=== PATIENT | female | born 1975 | race Hispanic/Latino ===

== ENCOUNTER 2020-08-28 10:56 | Emergency (ER) | payer BC, SELFPAY ==
--- NOTE | ~2020-08-28 | XR_ITS ---
EXAMINATION: XR chest 2V EXAM DATE: 08/28/2020 11:31 INDICATION: post covid difficulty breathing X 3 months non smoker . TECHNIQUE: Frontal and lateral projections of the chest obtained and reviewed. There is no prior rosendo dy for comparison. FINDINGS: There are cholecystectomy clips. The lungs are clear. There are no pleural effusions. Th e cardiomediastinal silhouette is within normal limits. There is no pneumothorax suspected. The bon es and soft tissues are unremarkable. IMPRESSION: No acute cardiopulmonary findings. Reviewed, dictated and finalized at location A. RE CUTTER
[2020-08-28 11:19] VITALS: BP 117/82; PULSE 72; RESP 18; TEMP 36.1; O2SAT 100
--- NOTE | 2020-08-28 11:40 | ED.SOB ---
HPI - SOB/Dyspnea General Chief Complaint: Shortness of Breath/Dyspnea Stated Complaint: Breathing Problem Source: patient and family Mode of arrival: ambulatory Limitations: no limitations History of Present Illness HPI Narrative: Patient is a 44-year-old female who presents with daughter. Patient speaks limited Kinyarwanda, patient's daughter is an adult and is assisting with translation. Patient reports having Covid in 04/18. Patient reports she continues to have residual symptoms since. She reports shortness of breath with exertion and fatigue. Patient daughter reports that patient is anxious because a friend with post Covid had a heart attack recently. Patient has appointment with PCP tomorrow as well. She denies chest pain or other complaints at this time. MD elicited complaint: shortness of breath Related Data Home Medications Medication Instructions Recorded Confirmed fluticasone propionate 50 mcg INTRANASAL DIRECTED 08/28/20 08/28/20 loratadine 10 mg PO DAILY 08/28/20 08/28/20 Allergies Allergy/AdvReac Type Severity Reaction Status Date / Time No Known Allergies Allergy Unverified 08/28/20 11:10 Review of Systems Review of Systems: Narrative: CONSTITUTIONAL: Denies fever, chills, or sweats. Reports fatigue EYES: Denies visual changes, redness, or discharge. ENT: Denies rhinorrhea, congestion, sore throat, or otalgia. CARDIOVASCULAR: Denies chest pain, palpitations, or edema. RESPIRATORY: Denies cough, reports intermittent dyspnea. GASTROINTESTINAL: Denies abdominal pain, nausea, vomiting, or diarrhea. GENITOURINARY: Denies dysuria or hematuria. SKIN: Denies rash or itching. MUSCULOSKELETAL: Denies back pain, joint pain, or myalgia. NEUROLOGIC: Denies headache, numbness, dizziness, or weakness. PSYCHIATRIC: Denies anxiety or depression. [facility] Past Medical History Medical History (Updated 08/28/20 @ 11:59 by CONCEPCIÓN Campos) COVID-19 Surgical History Surgical History (Updated 08/28/20 @ 11:55 by CONCEPCIÓN Campos) No significant past surgical history Family History Family History Sibling Family history of malignant neoplasm of breast in first degree relative Mother Diabetes mellitus Hypertension Father Family history of hypercholesterolemia Other Family history of malignant neoplasm Family history of malignant neoplasm of stomach Social History Social History (Updated 08/28/20 @ 11:55 by CONCEPCIÓN Campos) Smoking status: Never smoker Alcohol intake: current Alcohol use details: Occasional Substance use: never Living arrangements: with family Comments At the time of signature, I have reviewed and agree with nursing past medical, surgical, social, and family history unless otherwise noted. Please see nursing chart for further information. There is no relevant family history pertinent to the presenting complaint. Exam Narrative: Exam Narrative: GENERAL: Well-appearing, well-nourished, and in no acute distress. HEAD: Normocephalic, atraumatic. EYES: EOMI. No redness or drainage. Conjunctiva are normal. ENT: Mucous membranes pink and moist. CHEST: No respiratory distress. Clear to auscultation. HEART: Regular rate and rhythm. No murmur appreciated. Normal peripheral pulses. GI: Soft, nontender without rebound, or guarding. MUSCULOSKELETAL: No bony tenderness. EXTREMITIES: Normal range of motion. No edema. SKIN: Warm, dry, no rash. NEURO: No focal deficits. Alert and oriented x3. Gait steady. PSYCH: Normal affect. No signs of depression or anxiety. Course Vital Signs Vital signs: Vital Signs Temperature 36.1 C L 08/28/20 11:19 Pulse Rate 72 08/28/20 11:19 Respiratory Rate 18 08/28/20 11:19 Blood Pressure 117/82 08/28/20 11:19 Pulse Oximetry 100 08/28/20 11:19 Temperature 36.1 C L 08/28/20 11:19 Pulse Rate 72 08/28/20 11:19 Respiratory Rate 18
== END 2020-08-28 12:05 | disposition home or self-care (01) ==
PROVIDERS: Emergency Provider Nurse Practitioner
DX: R06.02 Shortness of breath (principal); R53.83 Other fatigue; B94.8 Sequelae of other specified infectious and parasitic diseases
CPT/HCPCS: 71046; 99213; G0463

== ENCOUNTER 2021-07-17 16:17 | Emergency (ER) | payer OTHER, SELFPAY ==
[2021-07-17 16:50] VITALS: BP 107/72; PULSE 68; RESP 18; TEMP 36.7; O2SAT 99
--- NOTE | 2021-07-17 17:02 | ED.EYEPROB ---
HPI - Eye Problem General Chief complaint: Eye Problems Stated complaint: Swollen Eye Time Seen by Provider: 07/17/21 17:02 Source: patient and RN notes reviewed Mode of arrival: ambulatory Limitations: no limitations and language barrier (Offered director of philanthropy, wanted to use niece to translate) History of Present Illness HPI Narrative: 45-year-old female [facility] and swelling to the right lower lid has been using Visine. States it started on Friday, 3 days ago chief complaint: eye pain Related Data Allergies Allergy/AdvReac Type Severity Reaction Status Date / Time No Known Allergies Allergy Unverified 08/28/20 11:10 Review of Systems Review of Systems: All systems reviewed & are unremarkable except as noted in HPI and below Constitutional: Constitutional: Reports no additional constitutional complaints, Denies chills and Denies fever(s) Eyes: Eyes: Reports as per HPI Comments: Right lower lid redness and swelling ENT: Reports system reviewed and no additional complaints, except as documented Cardiovascular: Cardiovascular: Reports no additional cardiovascular complaints Respiratory: Respiratory: Reports no additional respiratory complaints Gastrointestinal: Gastrointestinal: Reports no additional gastrointestinal complaints Musculoskeletal: Musculoskeletal: Reports no additional musculoskeletal complaints Integumentary/Breasts: Skin/Breast: Reports system reviewed and no additional complaints, except as docu Neurologic: Reports system reviewed and no additional complaints, except as documented Psychiatric: Psychiatric: Reports no additional psychiatric complaints Allergic/Immunologic: Allergic/Immunologic: Reports no additional allergic/immunologic complaints [facility] Past Medical History Medical History COVID-19 Surgical History Surgical History (Updated 07/17/21 @ 17:08 by Christina Moore) H/O: hysterectomy History of Hx of cholecystectomy No significant past surgical history Family History Family History Sibling Family history of malignant neoplasm of breast in first degree relative Mother Diabetes mellitus Hypertension Father Family history of hypercholesterolemia Other Family history of malignant neoplasm Family history of malignant neoplasm of stomach Social History Social History Smoking status: Never smoker Alcohol intake: current Alcohol use details: Occasional Substance use: never Comments At the time of my signature, I reviewed and agree with the nursing past medical, surgical, social, and family history. There is no relevant family history pertinent to the patient complaint. Exam Const: General: no acute distress Nutritional Appearance: well nourished Orientation/consciousness: patient oriented x3 Limitations: language barrier HENMT: Head: normal to inspection Eyes: General: appearance normal, both eyes and all related structures Alignment and Position: alignment normal Periorbital: periorbital findings normal Eyelids: eyelid abnormality right lower eyelid inflamed cyst, erythema, swelling and tenderness; no crusting or scaling of lid margins Conjunctivae: conjunctivae normal Cornea: corneas normal Pupils: Equal, round and reactive pupils present and Pupils normal by confrontation EOM: EOMs intact bilaterally Direct Ophthalmoscopy: normal light reflex Eyes/upper lids images: 1. Redness, stye, inflammation Neck: Neck: normal visual inspection Chest: Chest palpation & inspection: normal inspection of the chest Resp: Effort & Inspection: normal respiratory effort Cardio: Rate: regular rate Rhythm: regular rhythm Back/Spine/Pelvis: Back: no CVA tenderness Skin: General skin exam: normal color Rashes: no rashes Wounds: no wounds Neuro: General: cristi
== END 2021-07-17 17:17 | disposition home or self-care (01) ==
PROVIDERS: Emergency Provider Nurse Practitioner; PCP Physician Assistant
DX: H00.012 Hordeolum externum right lower eyelid (principal); Z86.16 Personal history of COVID-19
CPT/HCPCS: 99213; G0463

== ENCOUNTER 2021-08-17 13:59 | Emergency (ER) | payer OTHER, SELFPAY ==
[2021-08-17 14:13] VITALS: BP 109/72; PULSE 112; RESP 18; TEMP 37.7; O2SAT 97
--- NOTE | 2021-08-17 14:26 | ED.NAVMDI ---
HPI - Nausea/Vomiting/Diarrhea General Chief complaint: Nausea/Vomiting/Diarrhea Stated complaint: vomiting/weakness Time Seen by Provider: 08/17/21 14:26 Source: patient, RN notes reviewed and old records reviewed Mode of arrival: ambulatory Limitations: no limitations and language barrier (Offered data warehouse consultant via phone, patient and daughter declined) History of Present Illness HPI Narrative: 45-year-old [place]-speaking female presents to [facility] with her daughter. Scrap Baler phone offered, daughter declined. Daughter reports that mom woke up with abdominal pain, epigastric, periumbilical, right upper quadrant since 4 AM describes it as a sharp pain associated with nausea and vomiting. Denies any urinary symptoms. Denies any diarrhea. Has taken Pepto states it made the pain worse MD elicited complaint: nausea, vomiting and abdominal pain Related Data Allergies Allergy/AdvReac Type Severity Reaction Status Date / Time No Known Allergies Allergy Unverified 08/28/20 11:10 Review of Systems Review of Systems: All systems reviewed & are unremarkable except as noted in HPI and below Constitutional: Constitutional: Reports no additional constitutional complaints, Denies chills and Denies fever(s) Eyes: Eyes: Reports no additional eye complaints ENT: Reports system reviewed and no additional complaints, except as documented Cardiovascular: Cardiovascular: Reports no additional cardiovascular complaints, Denies chest pain and Denies dyspnea Respiratory: Respiratory: Reports no additional respiratory complaints, Denies cough, Denies dyspnea and Denies wheezing Gastrointestinal: Gastrointestinal: Reports as per HPI, Reports abdominal pain, Denies diarrhea, Reports nausea and Reports vomiting Musculoskeletal: Musculoskeletal: Reports no additional musculoskeletal complaints Integumentary/Breasts: Skin/Breast: Reports system reviewed and no additional complaints, except as docu Neurologic: Reports system reviewed and no additional complaints, except as documented Psychiatric: Psychiatric: Reports no additional psychiatric complaints Allergic/Immunologic: Allergic/Immunologic: Reports no additional allergic/immunologic complaints and Denies wheezing PMFSH Past Medical History Medical History COVID-19 Surgical History Surgical History H/O: hysterectomy History of Hx of cholecystectomy No significant past surgical history Family History Family History Sibling Family history of malignant neoplasm of breast in first degree relative Mother Diabetes mellitus Hypertension Father Family history of hypercholesterolemia Other Family history of malignant neoplasm Family history of malignant neoplasm of stomach Social History Social History Smoking status: Never smoker Alcohol intake: current Alcohol use details: Occasional Substance use: never Comments At the time of my signature, I reviewed and agree with the nursing past medical, surgical, social, and family history. There is no relevant family history pertinent to the patient complaint. Exam Const: General: healthy appearing, no acute distress and alert Nutritional Appearance: well nourished Orientation/consciousness: patient oriented x3 Limitations: no limitations HENMT: Head: normal to inspection Ears: external ears normal Eyes: Pupils: Equal, round and reactive pupils present Neck: Neck: normal visual inspection, no lymphadenopathy and no meningeal signs Chest: Chest palpation & inspection: normal inspection of the chest Resp: Effort & Inspection: normal respiratory effort and no use of accessory muscles Auscultation: clear to auscultation bilaterally, no crackles, no rales, no rhonchi and no wheezes Cardio: Rate: regular rate Rhythm
== END 2021-08-17 14:54 | disposition short-term general hospital (02) ==
LOC: EXPCOLL 14:02
PROVIDERS: Emergency Provider Nurse Practitioner
DX: R10.84 Generalized abdominal pain (principal); Z86.16 Personal history of COVID-19
CPT/HCPCS: 81003; 99212; G0463

== ENCOUNTER 2021-08-17 15:07 | Emergency (ER) | payer OTHER, SELFPAY ==
--- NOTE | ~2021-08-17 | CT_ITS ---
EXAMINATION: CT abdomen pelvis w con EXAM DATE: 08/17/2021 19:04 INDICATION: Abdomina pain, nausea. TECHNIQUE: Spiral CT of the abdomen and pelvis was performed following intravenous injection of 100 m L Omnipaque 350. Axial, coronal and sagittal images of the abdomen and pelvis were reviewed. The do se-length product (DLP) for this examination was 383.35 mGy-cm. The exposure was tailored according to patient size (auto mA exposure control), and iterative reconstruction (ASIR) was used as additiona l dose reduction technique. Comparison is made to prior examination from 08/08/2016. FINDINGS: There is hepatic steatosis without suspicious focal lesion identified. Spleen, adrenal glan ds, pancreas are unremarkable. There are cholecystectomy clips. Portal and splenic veins are patent . Kidneys enhance symmetrically. There is no hydronephrosis. The uterus is not identified and has likely been surgically resected. The bladder is unremarkable. There is no retroperitoneal or pelvi c lymphadenopathy. Small umbilical fat-containing hernia. There are no findings to suggest appendicitis. The stomach and small bowel are unremarkable. There is expected amount of colonic stool. No free intraperitoneal gas. The heart is normal in size. T here are no pericardial or pleural effusions. Dependent subsegmental atelectasis. There are no oste oblastic or osteolytic lesions identified. IMPRESSION: 1. No acute intra-abdominal findings. 2. Hepatic steatosis. Reviewed, dictated and finalized at location G. TAIN SERVER
--- NOTE | ~2021-08-17 | CT_ITS ---
EXAMINATION: CT brain wo con EXAM DATE: 08/17/2021 19:04 INDICATION: Headache. Nausea and vomiting. TECHNIQUE: Spiral CT of the head was performed without contrast. Axial, coronal and sagittal images were reviewed. The dose-length product (DLP) for this examination was 605.33 mGy-cm. The exposure w as tailored according to patient size, and iterative reconstruction (ASIR) was used as additional dos e reduction technique. There is no prior study for comparison. FINDINGS: There is no acute intraparenchymal hemorrhage. No evidence of intraparenchymal brain mass lesion. No evidence of acute infarction. There is no mass effect or midline shift. The ventricles are normal in size. There are no extra-axial collections. There are no acute calvarial fractures. T he orbits are unremarkable. Soft tissue is unremarkable. The visualized sinuses and mastoid air brian ls are well aerated. IMPRESSION: 1. No acute intracranial findings. Reviewed, dictated and finalized at location G. ECTOR [employer]
[2021-08-17 15:12] VITALS: BP 124/79; PULSE 109; RESP 18; TEMP 36.9; O2SAT 98
[2021-08-17 16:18] LABS: Basophils Percent Auto 0.3 % (0.2-1.2); Eosinophils Absolute Auto 0.1 K/mm3 (0-0.3); Eosinophils Percent Auto 0.9 % (0-4.4); Hematocrit 42.9 % (37.0-47.0); Hemoglobin 15.1 g/dL (12.0-15.0); Immature Granulocyte Absolute 0.05 K/mm3 (0.00-0.031); Immature Granulocyte Percent A 0.4 % (0-0.5); Lymphocytes Absolute Auto 0.62 K/mm3 (0.9-3.2); Mean Corpuscular HGB Conc 35.2 g/dl (32-36); Mean Corpuscular Hemoglobin 31.1 pg (26-34); Mean Corpuscular Volume 88.5 fl (80-100); Mean Platelet Volume 10.7 fl (7.4-10.4); Monocytes Absolute Auto 0.7 K/mm3 (0.1-0.6); Monocytes Percent Auto 5.7 % (2.6-8.5); Neutrophils Percent Auto 87.7 % (45.5-73.1); Platelet Count Result 269 k/mm3 (150-375); Red Blood Count 4.85 M/mm3 (4.2-5.4); Red Cell Distribution Width 12.1 % (11.5-14.5); White Blood Count 12.5 K/mm3 (4.5-10.0)
[2021-08-17 16:37] LABS: Alanine Aminotransferase 64 U/L (4-35); Alkaline Phosphatase 156 U/L (38-126); Anion Gap 13 mmol/L (8-16); Aspartate Amino Transferase 49 U/L (14-36); Bilirubin,Total 0.8 mg/dL (0.2-1.3); Blood Urea Nitrogen 17 mg/dL (7-17); Calcium 9.7 mg/dL (8.4-10.2); Carbon Dioxide 25 mmol/L (22-30); Chloride 100 mmol/L (98-107); Estimated Glomerular Filt Rate > 60; Glucose 130 mg/dL (65-110); Lipase 30 U/L (23-300); Potassium 3.7 mmol/L (3.4-5.0); Sodium 138 mmol/L (137-145)
[2021-08-17 16:37] LABS: Add Urine Microscopic? YES; Appearance Urine Clear (Clear); Bacteria Urine 2+ /hpf; Bilirubin Urine Negative (Negative); Blood Urine 1+ (Negative); Color Urine Amber (Yellow); Glucose Urine UA Negative (Negative); Ketones Urine 1+ mg/dL (Negative); Leukocyte Esterase Ur Negative LEU/UL (Negative); Mucus Urine Heavy /lpf; Nitrate Urine Negative (Negative); Protein Urine 2+ mg/dL (Negative); RBC Urine 21-50 /hpf (0-2); Squamous Epithelial Cell Urine Many /hpf (Few); WBC Urine 0-3 /hpf
[2021-08-17] MEDS: ONDANSETRON INJ 4 MG/2 ML VIAL IV PUSH (16:47)
[2021-08-17] MEDS: SODIUM CHLORIDE 0.9% IV 1,000 ML 999 ML IV CONT (17:04)
[2021-08-17 17:29] LABS: Specific Grav Ur 1.035 (1.001-1.035)
[2021-08-17] MEDS: diphenhydrAMINE HCl INJ 50 MG/ML VIAL 25 MG IV PUSH (17:32)
[2021-08-17] MEDS: KETOROLAC 15 MG/ML VIAL (*BKC) IV PUSH (17:33)
[2021-08-17 17:34] VITALS: BP 121/87; PULSE 108; RESP 14; O2SAT 92
--- NOTE | 2021-08-17 18:21 | ED.NAVMDI ---
HPI - Nausea/Vomiting/Diarrhea General Chief complaint: Nausea/Vomiting/Diarrhea Stated complaint: N/V, abd pain Time Seen by Provider: 08/17/21 16:08 Source: patient History of Present Illness HPI Narrative: 45-year-old female presents today with complaints of headache x1 month and nausea and vomiting with abdominal pain that started yesterday. Patient primary language is Omani. Daughter currently at the bedside. Denies any sick contacts. Patient was vaccinated against over the last year but did not get her boosters. Patient denies fever, chills, or body aches. Patient states she has tried Tylenol for headache with little relief. Related Data Allergies Allergy/AdvReac Type Severity Reaction Status Date / Time No Known Allergies Allergy Unverified 08/28/20 11:10 Review of Systems Constitutional: Constitutional: Reports as per HPI, Denies body ache(s), Denies chills, Reports fatigue, Reports headache(s), Denies increased appetite and Reports lethargy Eyes: Eyes: Reports no additional eye complaints ENT: Reports nasal congestion Cardiovascular: Cardiovascular: Reports no additional cardiovascular complaints Respiratory: Respiratory: Reports no additional respiratory complaints Gastrointestinal: Gastrointestinal: Reports as per HPI Genitourinary: Genitourinary: Reports no additional female genitourinary complaints Neurologic: Reports headache(s) (chronic headache at the base of the neck for 1 month) PMFSH Past Medical History Medical History COVID-19 Surgical History Surgical History H/O: hysterectomy History of Hx of cholecystectomy No significant past surgical history Family History Family History Sibling Family history of malignant neoplasm of breast in first degree relative Mother Diabetes mellitus Hypertension Father Family history of hypercholesterolemia Other Family history of malignant neoplasm Family history of malignant neoplasm of stomach Social History Social History Smoking status: Never smoker Alcohol intake: current Alcohol use details: Occasional Substance use: never Exam Narrative: GENERAL: ill-appearing, well-nourished, and in no acute distress. HEAD: Normocephalic, atraumatic. EYES: PERRLA and EOMI. ENT: Nares clear, no rhinorrhea or epistaxis. Mucous membranes moist. Oropharynx without tonsillar hypertrophy exudate or other lesions. Bilateral TMs pearly lyles nonbulging NECK: Supple. No adenopathy or masses. No carotid bruits or JVD CHEST: Clear to auscultation. No respiratory distress. No wheezes rales or rhonchi HEART: Regular rate and rhythm. No murmur heard. Normal peripheral pulses. ABDOMEN: Soft, nontender, nondistended, normal active bowel sounds. EXTREMITIES: Normal range of motion. No edema. SKIN: Warm, dry, no rash. NEURO: No focal deficits. Alert and oriented x3. PSYCH: Normal mood and affect. Const: General: ill appearing Course Reevaluation(s) Reevaluation #1: Patient fells better. Date: 08/17/21 Time: 19:23 Vital Signs Vital signs: Vital Signs Temperature 36.9 C 08/17/21 15:12 Pulse Rate 109 H 08/17/21 15:12 Respiratory Rate 18 08/17/21 15:12 Blood Pressure 124/79 08/17/21 15:12 Pulse Oximetry 98 08/17/21 15:12 Temperature 36.9 C 08/17/21 15:12 Pulse Rate 108 H 08/17/21 17:34 Respiratory Rate 14 08/17/21 17:34 Blood Pressure 121/87 08/17/21 17:34 Pulse Oximetry 92 08/17/21 17:34 MDM - Nausea/Vomiting/Diarrhea Differential Diagnosis Differential diagnosis: Likely gastroenteritis and other (SBO, viral illness) Medical Records Attestation: I reviewed the patient's medical records. Lab Data Attestation: I reviewed the patient's lab results. Result diagrams:
[2021-08-17 19:05] LABS: SARS-CoV-2 RNA PCR Negative
[2021-08-17 20:04] VITALS: BP 116/66; PULSE 95; RESP 16; O2SAT 94
== END 2021-08-17 20:01 | disposition home or self-care (01) ==
PROVIDERS: Emergency Medicine; Emergency Provider Nurse Practitioner Family; PCP Physician Assistant
DX: N39.0 Urinary tract infection, site not specified (principal); R11.2 Nausea with vomiting, unspecified; Z20.822 Contact with and (suspected) exposure to COVID-19; Z86.16 Personal history of COVID-19; K76.0 Fatty (change of) liver, not elsewhere classified
CPT/HCPCS: 36415; 70450; 74177; 80053; 81001; 81003; 81025; 83690; 85025; 96361; 96374; 96375; 99212; 99284; C9803; G0463; J1200; J1885; J2405; J7030; Q9967; U0003; U0005

== ENCOUNTER 2021-10-15 07:40 | Outpatient (CLI) | payer OTHER, SELFPAY ==
--- NOTE | ~2021-10-15 | MM_ITS ---
EXAMINATION: MM screening kait BI w manan HISTORY: Screening mammogram TECHNIQUE: Craniocaudal and mediolateral oblique 3-D tomosynthesis images were obtained and synthetic 2-D images were generated. CAD analysis was submitted and interpreted. COMPARISON: 09/09/2018, 09/04/2007 bilateral screening mammogram examinations BREAST PARENCHYMAL COMPOSITION: The breasts are heterogeneously dense, which may obscure small masses . FINDINGS: Occasional benign calcifications. There is no evidence of suspicious mass, calcification, o r architectural distortion to suggest malignancy in either breast. There has been no suspicious inter christopher change. IMPRESSION: 1. No mammographic evidence of malignancy. 2. Recommend routine screening mammography in one year. BI-RADS Category 2: Benign finding(s). Reviewed, dictated and finalized at location A.
== END 2021-10-15 07:41 | disposition home or self-care (01) ==
LOC: ANHIMG 07:42
PROVIDERS: PCP Physician Assistant; Visit Provider Physician Assistant
DX: Z12.31 Encounter for screening mammogram for malignant neoplasm of breast (principal)
CPT/HCPCS: 77063; 77067

== ENCOUNTER 2021-11-19 17:53 | Emergency (ER) | payer OTHER, SELFPAY ==
--- NOTE | ~2021-11-19 | CT_ITS ---
EXAMINATION: CT facial bones w con DATE: 11/19/2021 19:15 INDICATION: swelling, painful mass on R cheek . TECHNIQUE: Computed tomography (CT) of the facial bones and maxillofacial region was performed with 7 5 mL Omnipaque 300 intravenous contrast. Automated exposure control and iterative reconstruction tech nique were employed. The dose-length product was 258.98 mGy-cm. COMPARISON: None. FINDINGS: Soft Tissues: No significant superficial soft tissue swelling. Oval 1.9 x 0.7 x 1.1 cm ovoid, fluid density lesion superficial to the right masseter muscle just deep to the superficial layer of subcuta neous fat. No focal fluid or surrounding inflammatory change. Facial bones: No acute fracture. No lytic or blastic process. Eyes: The globes are intact. The soft tissue planes of the orbits are maintained. Paranasal Sinuses: Right inferior frontal retention cyst/polyp, otherwise the visualized aerated spa misbah are clear. Foreign Bodies: No radiopaque foreign bodies. Other Findings: None. IMPRESSION: Fluid density, possibly cystic 1.9 cm lesion superficial to the right masseter muscle, without signif icant inflammatory change. Otherwise normal CT face findings. Reviewed, dictated and finalized at location K. IMPRESSION: Fluid density, possibly cystic 1.9 cm lesion superficial to the right masseter muscle, without significant inflammatory change. Otherwise normal CT face findi ngs.
[2021-11-19 17:55] VITALS: BP 107/75; PULSE 64; RESP 16; TEMP 36.1; O2SAT 100
--- NOTE | 2021-11-19 18:10 | ED.SKABFB ---
HPI - Skin/Abscess/Foreign Bdy General Chief complaint: Skin/Abscess/Foreign Body Stated complaint: Unspecified Time Seen by Provider: 11/19/21 18:01 History of Present Illness HPI narrative: Patient is a 46-year-old female here for evaluation of a painful mass to her right cheek that she noted today. Patient states she noticed this when she was eating, and it made it difficult to continue her meal. Ever since she has had some difficulty with chewing due to the pain in her right cheek. She is taken 500 mg of Tylenol with moderate relief of her pain. Denies history of previous. Denies any drooling, trismus, difficulty swallowing, fevers, chills, dental pain, shortness of breath, throat swelling. Related Data Allergies Allergy/AdvReac Type Severity Reaction Status Date / Time No Known Allergies Allergy Unverified 11/19/21 17:59 Review of Systems Review of Systems: Gen.: Denies fevers or chills Eyes: Denies eye pain or visual change ENT: Reports mass to right cheek. Denies congestion Respiratory: Denies shortness of breath or cough CV: Denies chest pain or palpitations GI: Denies abdominal pain nausea, emesis or diarrhea denies burning, urgency, frequency or hematuria Musculoskeletal: Denies back pain or muscle pain Neuro: Denies numbness, tingling, weakness or focal weakness Skin: Denies rash Except as documented, all other systems reviewed and negative All systems reviewed & are unremarkable except as noted in HPI and below PMFSH Past Medical History Medical History COVID-19 Surgical History Surgical History H/O: hysterectomy History of Hx of cholecystectomy No significant past surgical history Family History Family History Sibling Family history of malignant neoplasm of breast in first degree relative Mother Diabetes mellitus Hypertension Father Family history of hypercholesterolemia Other Family history of malignant neoplasm Family history of malignant neoplasm of stomach Social History Social History Smoking status: Never smoker Alcohol intake: current Alcohol use details: Occasional Substance use: never Exam Narrative: APPEARANCE: Well appearing, no pain in distress, well-nourished. Head: normocephalic and atraumatic. EYES: PERRLA/EOMI, conjunctivae clear NOSE: No nasal drainage EARS: External ear normal in appearance THROAT: 1 x 1 cm firm, tender mass noted with palpation of outer right cheek. This is not visible or palpable from the inside of the oral mucosa. No overlying erythema. No dental caries or dental abscess palpated. Oropharynx is clear. Mucous membranes are moist. NECK: Supple. No adenopathy, no masses. RESPIRATORY: Airway patent, respirations nonlabored. Clear to auscultation bilaterally, no rales, rhonchi, wheezing. CARDIOVASCULAR: Regular rate and rhythm without murmurs, rubs, or gallops. ABDOMINAL: Normoactive bowel sounds. Soft, nontender, nondistended. No rebound tenderness or guarding. MUSCULOSKELETAL: Extremities are warm and well-perfused. Moves all extremities well. No edema. NEURO: Normal speech. No focal neurologic deficits. SKIN: Skin is warm and dry. No rashes. PSYCHIATRIC: Normal affect/mood. Course Vital Signs Vital signs: Vital Signs Temperature 96.9 F L 11/19/21 17:55 Pulse Rate 64 11/19/21 17:55 Respiratory Rate 16 11/19/21 17:55 Blood Pressure 107/75 11/19/21 17:55 Pulse Oximetry 100 11/19/21 17:55 Temperature 96.9 F L 11/19/21 17:55 Pulse Rate 88 11/19/21 19:55 Respiratory Rate 19 11/19/21 19:55 Blood Pressure 120/88 11/19/21 19:55 Pulse Oximetry 97 11/19/21 19:55 MDM - Skin/Abscess/Foreign Bdy MDM Narrative Medical decision making narrative: 46-year-old
[2021-11-19] MEDS: IBUPROFEN 600 MG TABLET PO (18:27)
[2021-11-19 18:40] LABS: Basophils Absolute Auto 0.1 K/mm3 (0.0-0.1); Basophils Percent Auto 0.6 % (0.2-1.2); Eosinophils Absolute Auto 0.4 K/mm3 (0-0.3); Hematocrit 37.4 % (37.0-47.0); Hemoglobin 12.5 g/dL (12.0-15.0); Immature Granulocyte Absolute 0.02 K/mm3 (0.00-0.031); Immature Granulocyte Percent A 0.2 % (0-0.5); Lymphocytes Absolute Auto 2.68 K/mm3 (0.9-3.2); Lymphocytes Percent Auto 26.8 % (18.3-44.2); Mean Corpuscular HGB Conc 33.4 g/dl (32-36); Mean Corpuscular Hemoglobin 31.3 pg (26-34); Mean Corpuscular Volume 93.7 fl (80-100); Mean Platelet Volume 10.1 fl (7.4-10.4); Monocytes Absolute Auto 0.9 K/mm3 (0.1-0.6); Monocytes Percent Auto 8.5 % (2.6-8.5); Neutrophils Percent Auto 59.9 % (45.5-73.1); Platelet Count Result 267 k/mm3 (150-375); Red Blood Count 3.99 M/mm3 (4.2-5.4); Red Cell Distribution Width 12.4 % (11.5-14.5)
[2021-11-19 18:50] LABS: Alanine Aminotransferase 33 U/L (6-35); Alkaline Phosphatase 95 U/L (38-126); Anion Gap 6 mmol/L (8-16); Aspartate Amino Transferase 30 U/L (14-36); Bilirubin,Total 0.2 mg/dL (0.2-1.3); Blood Urea Nitrogen 18 mg/dL (7-17); Calcium 8.4 mg/dL (8.4-10.2); Carbon Dioxide 29 mmol/L (22-30); Chloride 102 mmol/L (98-107); Estimated Glomerular Filt Rate > 60; Glucose 98 mg/dL (65-110); Potassium 3.7 mmol/L (3.4-5.0); Sodium 137 mmol/L (137-145)
[2021-11-19 19:55] VITALS: BP 120/88; PULSE 88; RESP 19; O2SAT 97
== END 2021-11-19 19:55 | disposition home or self-care (01) ==
PROVIDERS: Physician Assistant; Emergency Provider Emergency Medicine; PCP Physician Assistant
DX: L72.9 Follicular cyst of the skin and subcutaneous tissue, unspecified (principal)
CPT/HCPCS: 36415; 70487; 80053; 85025; 99284; A9270; Q9967

== ENCOUNTER 2022-07-05 16:15 | Outpatient (CLI) | payer OTHER, SELFPAY ==
--- NOTE | ~2022-07-05 | US_ITS ---
EXAMINATION: US pelvic complete w TV DATE: 07/05/2022 16:52 INDICATION: Right ovarian cyst. Comparison:CT dated 08/17/2021 TECHNIQUE: Multiple transabdominal sonographic images of the pelvis performed. FINDINGS: The uterus is surgically absent. The left ovary is also surgically absent. The right ovary measures 4.2 x 3.7 x 4.3 cm. There is a simple cyst of the right ovary measuring 2.8 x 2.6 x 2.2 cm. IMPRESSION: 1. Simple cyst of the right ovary measuring 2.8 cm. Reviewed, dictated and finalized at location A. CHBOARD OPERATOR ASSISTANT
== END 2022-07-05 16:16 | disposition home or self-care (01) ==
PROVIDERS: PCP Surgery Plastic and Reconstructive Surgery; Visit Provider Physician Assistant
DX: N83.201 Unspecified ovarian cyst, right side (principal)
CPT/HCPCS: 76830; 76856

== ENCOUNTER 2023-05-12 20:14 | Emergency (ER) | payer OTHER, SELFPAY ==
--- NOTE | ~2023-05-12 | CT_ITS ---
EXAMINATION: CT abdomen pelvis w con DATE: 05/12/2023 22:07 INDICATION: Lower abdominal pain TECHNIQUE: Computed tomography (CT) of the abdomen and pelvis was performed with 100 mL Omnipaque-350 intravenous contrast. Automated exposure control and iterative reconstruction technique were employe d. The dose-length product was 427.54 mGy-cm. COMPARISON: CT dated 08/17/2021 FINDINGS: Dependent atelectasis in the bilateral lower lobes. Heart size is normal. No pericardial or pleural e ffusion. Diffuse hepatic steatosis with focal sparing in segment IVb of the liver. Cholecystectomy cl ips the gallbladder fossa. Spleen, pancreas, bilateral adrenal glands and right kidney are normal. 8 mm left renal cyst. Normal appendix. No bowel obstruction. Distended bladder is unremarkable. The wen mahnaz and left ovary are not identified and have likely been surgically resected. 3.8 x 3.4 cm complex cystic right adnexal lesion with fluid attenuation anteriorly and higher attenuation filling the depe ndent portion of the lesion which could represent either a hemorrhagic cyst or neoplasm. Minimal amou nt of likely physiologic free fluid in the deep pelvis. No free intraperitoneal gas. No pathologicall y enlarged abdominal or pelvic lymphadenopathy. A few small bone islands at the left femoral head and large of bone along the right supra-acetabular region. IMPRESSION: 1. 3.8 x 3.4 cm complex cystic right adnexal lesion statistically most likely to represent a hemorrha gic cyst although differential includes solid neoplasm. Consider pelvic ultrasound for further evalua tion. Reviewed, dictated and finalized at location A. COB PIPE MANUFACTURING SUPERVISOR IMPRESSION: 1. 3.8 x 3.4 cm complex cystic right adnexal lesion statistically most likely t o represent a hemorrhagic cyst although differential includes solid neoplasm. C onsider pelvic ultrasound for further evaluation.
--- NOTE | ~2023-05-12 | US_ITS ---
Pelvic ultrasound. Clinical History: Pelvic pain, ovarian cyst Technique: Realtime transabdominal and transvaginal scanning of the pelvis was performed. Color flow Doppler and Doppler spectral analysis were performed. Findings: Patient is status post hysterectomy and left oophorectomy. The right ovary measures 4.0 x 3.5 x 3.9 cm. Right ovary is predominantly occupied by an echogenic ma sslike structure without internal color flow. There is small to moderate amount of complex free fluid in the pelvis. Impression: 4.0 cm echogenic right ovarian lesion. This could reflect acute hemorrhagic cyst versus possibly linda d mass. Follow-up exam in 6-8 weeks recommended to reassess. Small to moderate complex free fluid in the pelvis, compatible with hemorrhagic ascites. Reviewed, dictated and finalized at location . [employer] Impression: 4.0 cm echogenic right ovarian lesion. This could reflect acute hemorrhagic cys t versus possibly solid mass. Follow-up exam in 6-8 weeks recommended to reasse ss. Small to moderate complex free fluid in the pelvis, compatible with hemorrhagic ascites.
[2023-05-12 20:37] VITALS: BP 146/89; PULSE 67; RESP 18; TEMP 36.3; O2SAT 100
[2023-05-12 21:18] LABS: Basophils Absolute Auto 0.1 K/mm3 (0.0-0.1); Basophils Percent Auto 0.9 % (0.2-1.2); Eosinophils Absolute Auto 0.4 K/mm3 (0-0.3); Eosinophils Percent Auto 3.8 % (0-4.4); Hematocrit 40.9 % (37.0-47.0); Hemoglobin 14.5 g/dL (12.0-15.0); Immature Granulocyte Absolute 0.04 K/mm3 (0.00-0.031); Immature Granulocyte Percent A 0.4 % (0-0.5); Lymphocytes Absolute Auto 2.88 K/mm3 (0.9-3.2); Lymphocytes Percent Auto 25.6 % (18.3-44.2); Mean Corpuscular HGB Conc 35.5 g/dl (32-36); Mean Corpuscular Volume 93.2 fl (80-100); Mean Platelet Volume 10.6 fl (7.4-10.4); Monocytes Absolute Auto 0.9 K/mm3 (0.1-0.6); Monocytes Percent Auto 7.8 % (2.6-8.5); Neutrophils Absolute Auto 6.9 K/mm3 (1.3-6.7); Neutrophils Percent Auto 61.5 % (45.5-73.1); Platelet Count Result 282 k/mm3 (150-375); Red Blood Count 4.39 M/mm3 (4.2-5.4); Red Cell Distribution Width 11.9 % (11.5-14.5); White Blood Count 11.2 K/mm3 (4.5-10.0)
--- NOTE | 2023-05-12 21:36 | ED.ABDPAIN ---
HPI - Abdominal Pain General Chief Complaint: Abdominal Pain Stated Complaint: abdominal pain Time Seen by Provider: 05/12/23 20:55 Source: patient Mode of arrival: wheelchair Limitations: language barrier (patient's family member is translating which she prefers) History of Present Illness HPI narrative: This is a 47 year old female that presents to the ER for low abdominal pain. Ongoing over the last several hours. Reports the pain is constant and has increased in intensity which prompted her to be seen. She has not taken anything for pain. Denies fever, vomiting, diarrhea, dysuria or hematuria. Related Data Allergies Allergy/AdvReac Type Severity Reaction Status Date / Time No Known Allergies Allergy Verified 05/12/23 20:37 Review of Systems Review of Systems: CONSTITUTIONAL: Denies fever GASTROINTESTINAL: Reports abdominal pain. Denies nausea, vomiting, or diarrhea. GENITOURINARY: Denies dysuria or hematuria. All systems reviewed & are unremarkable except as noted in HPI and below PMFSH Surgical History Surgical History (Updated 05/12/23 @ 21:43 by Ayleen Ledezma PA-C) H/O: hysterectomy History of Hx of cholecystectomy Family History Family History Sibling Family history of malignant neoplasm of breast in first degree relative Mother Diabetes mellitus Hypertension Father Family history of hypercholesterolemia Other Family history of malignant neoplasm Family history of malignant neoplasm of stomach Social History Social History Smoking status: Never smoker Alcohol intake: current Alcohol use details: Occasional Substance use: never Living arrangements: with family Exam Narrative: GENERAL: Uncomfortable, well-nourished, and in no acute distress. HEAD: Normocephalic, atraumatic. EYES: EOMI. CHEST: Clear to auscultation. No respiratory distress. No wheezes rales or rhonchi HEART: Regular rate and rhythm. No murmur heard. Normal peripheral pulses. ABDOMEN: Nondistended, tender to palpation throughout the abdomen, without guarding. Normal active bowel sounds. EXTREMITIES: Normal range of motion. No edema. SKIN: Warm, dry, no rash. NEURO: No focal deficits. Alert and oriented x3. PSYCH: Normal mood and affect Course Course Emergency Course: Patient and family updated on workup and agree with plan of care Vital Signs Vital signs: Vital Signs Temperature 97.4 F L 05/12/23 20:37 Pulse Rate 67 05/12/23 20:37 Respiratory Rate 18 05/12/23 20:37 Blood Pressure 146/89 H 05/12/23 20:37 Pulse Oximetry 100 05/12/23 20:37 Oxygen Delivery Room Air 05/12/23 20:37 Temperature 97.4 F L 05/12/23 20:37 Pulse Rate 76 05/13/23 01:49 Respiratory Rate 15 05/13/23 01:49 Blood Pressure 104/71 05/13/23 01:49 Pulse Oximetry 96 05/13/23 01:49 Oxygen Delivery Room Air 05/12/23 20:37 MDM - Abdominal Pain MDM Narrative Medical decision making narrative: Patient presents to the emergency department for pelvic pain ongoing since last night. She is afebrile and nontoxic-appearing. Her vitals are stable. CBC with mild leukocytosis to 11.2. Hemoglobin is normal. Metabolic panel without concerning findings. Lactic acid is not elevated. UA without evidence of infection. CT scan of the abdomen and pelvis shows a complex cystic right adnexal lesion. Pelvic ultrasound obtained which shows likely a ruptured hemorrhagic cyst. Patient now resting comfortably. Blood pressure and heart rate have remained normal. Hemoglobin re-checked and is still normal. She has been observed over the last 6 hours and has remained stable. Patient and family updated on workup and agree with plan of care. Instructed to have close follow-up with gynecology. She was given warnings to return to the ER Differential Diagnosis Differential diagnosis: Likely c
[2023-05-12] MEDS: MORPHINE SULFATE (*CRX) 4 MG/ML INJ IV PUSH (21:37)
[2023-05-12] MEDS: ONDANSETRON INJ 4 MG/2 ML VIAL IV PUSH (21:37)
[2023-05-12] MEDS: SODIUM CHLORIDE 0.9% IV 1,000 ML 999 ML IV CONT (21:38)
[2023-05-12 21:54] LABS: Estimated Glomerular Filt Rate > 60
[2023-05-12 22:06] LABS: Lactic Acid Reflex 1.4 mmol/L (0.7-2.0)
[2023-05-12 22:24] LABS: Appearance Urine Clear (Clear); Bacteria Urine None Seen /hpf; Bilirubin Urine Negative (Negative); Blood Urine Trace (Negative); Color Urine Yellow (Yellow); Glucose Urine UA Negative (Negative); Ketones Urine Negative (Negative); Leukocyte Esterase Ur Negative LEU/UL (Negative); Nitrate Urine Negative (Negative); Non Pathogenic Casts 0-2; Protein Urine Negative (Negative); RBC Urine 0-2 /hpf (0-2); Specific Grav Ur 1.013 (1.001-1.035); Squamous Epithelial Cell Urine None seen /hpf (Few); Urobilinogen Urine 0.2 mg/dL (<2.0); WBC Urine 0-5 /hpf; pH Urine 6.5 (5.0-9.0)
[2023-05-12 22:30] LABS: Add Urine Microscopic? YES
[2023-05-12 22:38] LABS: Alanine Aminotransferase 27 U/L (6-35); Albumin Level 3.8 g/dL (3.5-5.1); Alkaline Phosphatase 81 U/L (38-126); Anion Gap 11 mmol/L (8-16); Aspartate Amino Transferase 27 U/L (14-36); Bilirubin,Total 0.5 mg/dL (0.2-1.3); Blood Urea Nitrogen 13 mg/dL (7-17); Calcium 8.1 mg/dL (8.4-10.2); Carbon Dioxide 24 mmol/L (22-30); Chloride 100 mmol/L (98-107); Estimated Glomerular Filt Rate > 60; Glucose 132 mg/dL (65-110); Lipase 79 U/L (23-300); Potassium 4.1 mmol/L (3.4-5.0); Sodium 135 mmol/L (137-145)
[2023-05-12 23:41] VITALS: BP 111/71; PULSE 78; RESP 14; O2SAT 98
[2023-05-13 01:49] VITALS: BP 104/71; PULSE 76; RESP 15; O2SAT 96
[2023-05-13 02:07] LABS: Hematocrit 35.8 % (37.0-47.0); Hemoglobin 12.3 g/dL (12.0-15.0)
[2023-05-13 02:29] VITALS: TEMP 36.3
== END 2023-05-13 02:30 | disposition home or self-care (01) ==
PROVIDERS: Emergency Medicine; Emergency Provider Physician Assistant; PCP Physician Assistant
DX: N83.201 Unspecified ovarian cyst, right side (principal); Z90.710 Acquired absence of both cervix and uterus; Z90.49 Acquired absence of other specified parts of digestive tract
CPT/HCPCS: 36415; 74177; 76830; 76856; 80053; 81001; 83605; 83690; 85014; 85018; 85025; 96361; 96374; 96375; 99284; J2270; J2405; J7030; Q9967

== ENCOUNTER 2023-10-29 15:14 | Outpatient (CLI) | payer OTHER, SELFPAY ==
--- NOTE | ~2023-10-29 | MM_ITS ---
EXAMINATION: MM screening kait BI w manan HISTORY: Screening TECHNIQUE: Craniocaudal and mediolateral oblique 3-D tomosynthesis images were obtained and synthetic 2-D images were generated. CAD analysis was submitted and interpreted. COMPARISON: Comparison to multiple prior studies sequentially, with oldest reviewed study dated 12/2017. BREAST PARENCHYMAL COMPOSITION: Dense: The breasts are heterogeneously dense, which may obscure small masses FINDINGS: There is no evidence of suspicious mass, calcification, or architectural distortion to sugg est malignancy in either breast. There has been no suspicious interval change. IMPRESSION: 1. No mammographic evidence of malignancy. 2. Recommend routine screening mammography in one year. BI-RADS Category 1: Negative Reviewed, dictated and finalized at location B.
== END 2023-10-29 15:15 | disposition home or self-care (01) ==
LOC: ANHIMG 15:16
PROVIDERS: PCP Physician Assistant; Visit Provider Physician Assistant
DX: Z12.31 Encounter for screening mammogram for malignant neoplasm of breast (principal)
CPT/HCPCS: 77063; 77067

== ENCOUNTER 2024-05-15 12:14 | Emergency (ER) | payer OTHER, SELFPAY ==
--- NOTE | ~2024-05-15 | XR_ITS ---
EXAMINATION: XR chest 2V DATE: 05/15/2024 13:23 INDICATION: Productive cough. TECHNIQUE: Frontal and lateral views of the chest were obtained. COMPARISON: Chest 2 views 08/28/2020, CT abdomen and pelvis 05/12/2023 FINDINGS: There are airspace opacities in left upper lobe, consistent with pneumonia. No pleural effu bunny or pneumothorax. The heart size is normal. Surgical clips in the right upper quadrant are likely from cholecystectomy. IMPRESSION: 1. Left upper lobe pneumonia. Follow-up radiographs are recommended to confirm resolution and exclude malignancy. Reviewed, dictated and finalized at location A. NESS AGENT
--- NOTE | 2024-05-15 12:27 | ED.URI ---
HPI - URI/Sore Throat General Chief Complaint: Upper Respiratory Infection Stated Complaint: CLARK,cough,stomach pain, not sleeping,throat pain Source: patient, RN notes reviewed and old records reviewed Mode of arrival: ambulatory Limitations: no limitations History of Present Illness HPI Narrative: Patient presents with one-week history of cough, headache, abdominal muscle soreness, poor sleep, sore throat. She reports that symptoms are all worsened by coughing. She has been taking Delsym [id number] with minimal relief. States that she has had some fevers and night sweats. Cough is productive of blood-tinged phlegm. She denies any shortness of breath. She is in no distress at this time, including respiratory distress Related Data Allergies Allergy/AdvReac Type Severity Reaction Status Date / Time No Known Allergies Allergy Verified 05/15/24 12:20 Review of Systems Review of Systems: All systems reviewed & are unremarkable except as noted in HPI and below Constitutional: Constitutional: Reports no additional constitutional complaints ENT: Reports system reviewed and no additional complaints, except as documented Cardiovascular: Cardiovascular: Reports as per HPI and Reports no additional cardiovascular complaints Respiratory: Respiratory: Reports as per HPI, Reports no additional respiratory complaints, Reports change in phlegm color, Reports chest congestion, Reports cough, Reports pain with cough and Reports wheezing Gastrointestinal: Gastrointestinal: Reports no additional gastrointestinal complaints Musculoskeletal: Musculoskeletal: Reports no additional musculoskeletal complaints and Reports as per HPI [facility] Surgical History Surgical History H/O: hysterectomy History of Hx of cholecystectomy Family History Family History Sibling Family history of malignant neoplasm of breast in first degree relative Mother Diabetes mellitus Hypertension Father Family history of hypercholesterolemia Other Family history of malignant neoplasm Family history of malignant neoplasm of stomach Social History Social History Smoking status: Never smoker Alcohol intake: current Alcohol use details: Occasional Substance use: never Living arrangements: with family Comments At the time of my signature, I reviewed and agree with the nursing past medical, surgical, social, and family history. There is no relevant family history pertinent to the patient complaint. Exam Const: General: cooperative, no acute distress, alert and awake Orientation/consciousness: oriented to person, oriented to place and oriented to time HENMT: Head: normal to inspection Ears: TM's normal bilaterally Mouth: Yes moist mucous membranes Throat: posterior oropharynx normal Resp: Effort & Inspection: normal respiratory effort and able to speak in complete sentences Auscultation: clear to auscultation bilaterally, crackles on the right in the lower lung cook, no rales, no rhonchi, wheezes right lower and diminished lung sounds Cardio: Palpation: normal PMI Rate: regular rate Rhythm: regular rhythm Heart sounds: S1 normal heart sound present and S2 normal heart sound present Neuro: General: oriented to person, oriented to place and oriented to time Cranial nerves: Yes CN's II-XII intact bilaterally Psych: Appearance: grossly normal Thought process: Normal thought process present Insight: Good insight present (Psych) Judgement: Good judgement present (Psych) Course Course Level of Care: Express Care Visit Vital Signs Vital signs: Vital Signs Temperature 98.1 F 05/15/24 12:32 Pulse Rate 83 05/15/24 12:32 Respiratory Rate 16 05/15/24 12:32 Blood Pressure 113/64 05/15/24 12:32 Pulse Oximetry 97 05/15/24 12:32 Oxygen Delivery Room Air 05/15/24 12:32 Temperature 98.1 F 05/15/24 12:32 Pulse Rate 83 05/15/24 12:32 Respiratory Rate 16 05/15/24 12:32 Blood Pressure 113/64 05/15/24 12:32 Pulse Oximetry 97 05/15/24 12:32 Oxygen Delivery Room Air 05/15/24 12:32 Reviewed MDM - URI/Sore Throat MDM Narrative Medical decision making narrative: History, exam, chest x-ray consistent with atypical pneumonia. Treated same. Patient is nontoxic appearing, stable for discharge home with p.o. antibiotics. Importance of follow-up was discussed at length with patient and her daughter. Emergency department for new or worse symptoms. Discharge instructions reviewed with patient, as well as provided in writing per nursing staff. The instructions also include specific and strict return/GO TO THE ER as well as f/u information. All questions have been answered, and the patient deny any further questions with discharge and discharge plan. Some parts of this dictation were generated by voice recognition software and may contain typographical and/or grammatical inaccuracies. Differential Diagnosis Differential diagnosis: Likely upper respiratory infection, otitis media, sinusitis, viral infection, bronchitis and pharyngitis Medical Records Attestation: I reviewed the patient's medical records. Imaging Data Attestation: I personally reviewed and interpreted this imaging study as follows: My impression: MARQUISE bronwyn Radiologist's impression: [facility] [address] [place] [address] XRay Report Signed Patient: Iris Albert : 1975 MR#: [id number] Age: 48 Acct:[id number] Loc: [facility] ADM Date: 05/15/24Attending Dr: Ordering Physician: Kallie Aragon FNP Date of Service: 05/15/24 Procedure(s): XR chest 2V Accession Number(s): [id number] cc: Kallie Aragon FNP; Ganga, Nilsa Wliey PA-C~ EXAMINATION: XR chest 2V DATE: 05/15/2024 13:23 INDICATION: Productive cough. TECHNIQUE: Frontal and lateral views of the chest were obtained. COMPARISON: Chest 2 views 08/28/2020, CT abdomen and pelvis 05/12/2023 FINDINGS: There are airspace opacities in left upper lobe, consistent with pneumonia. No pleural effusion or pneumothorax. The heart size is normal. Surgical clips in the right upper quadrant are likely from cholecystectomy. IMPRESSION: 1. Left upper lobe pneumonia. Follow-up radiographs are recommended to confirm resolution and exclude malignancy. Reviewed, dictated and finalized at location A. ATTENDANT Dictated By: Xavi Miranda MD 05/15/24 1324 Signed By: <Electronically signed by Xavi Miranda MD in OV> 05/15/24 1325 Discharge Plan Discharge Clinical Impression: Pneumonia Qualifiers: Pneumonia type: due to unspecified organism Laterality: left Lung location: upper lobe of lung Qualified Code(s): J18.9 - Pneumonia, unspecified organism Patient Disposition: Home, Self-Care Condition: Stable Instructions: Antibiotic Form, Community Acquired Pneumonia (ED) Additional Instructions: Take medications as prescribed. Follow-up with primary care provider. It is suggested that you have a repeat chest x-ray to ensure resolution of symptoms and exclude any other diagnosis. Please discuss this with your doctor Patient Language: Martiniquais Prescriptions: New albuterol sulfate [Ventolin HFA] 90 mcg/actuation HFA aerosol inhaler 2 puff inhalation QID PRN (Reason: shortness of breath or wheezing) Qty: 8.5 0RF azithromycin 250 mg tablet See Rx Instructions .ROUTE .COMPLEX Qty: 6 0RF Rx Instructions: For 250 mg dose pack: take 500 mg today (day 1), then 250 mg for 4 days (days 2-5) Follow-up/Referrals: Ganga,JEFFREY Gunn [Primary Care Provider] - 2 Weeks Time of Disposition: 13:33
[2024-05-15 12:32] VITALS: BP 113/64; PULSE 83; RESP 16; TEMP 36.7; O2SAT 97
== END 2024-05-15 13:42 | disposition home or self-care (01) ==
PROVIDERS: Emergency Provider Nurse Practitioner Family; PCP Physician Assistant
DX: J18.9 Pneumonia, unspecified organism (principal)
CPT/HCPCS: 71046; 99213; G0463

== ENCOUNTER 2024-05-21 17:20 | Outpatient (CLI) | payer OTHER, SELFPAY ==
--- NOTE | ~2024-05-21 | XR_ITS ---
EXAMINATION: XR chest 2V DATE: 05/21/2024 17:35 INDICATION: Pneumonia TECHNIQUE: PA and lateral views of the chest were obtained. COMPARISON: Chest radiograph dated 05/15/24 FINDINGS: Near complete resolution of the prior the left upper lobar airspace opacities previously seen at the lateral left midlung zone consistent with resolving pneumonia. No new airspace opacities, pulmonary e margie, pleural effusion or pneumothorax. The cardiomediastinal silhouette is normal. Cholecystectomy c lips in the right upper quadrant. IMPRESSION: 1. Near complete resolution of prior left upper lobe pneumonia. Reviewed, dictated and finalized at location B. F COUNSEL
== END 2024-05-21 17:21 | disposition home or self-care (01) ==
LOC: ANHIMG 17:24
PROVIDERS: PCP Physician Assistant; Visit Provider Physician Assistant
DX: J18.1 Lobar pneumonia, unspecified organism (principal)
CPT/HCPCS: 71046